=== PATIENT | female | born 1995 | race Caucasian/White ===

== ENCOUNTER 2017-01-19 20:46 | Emergency (ER) | payer OTHER ==
[~2017-01-19] VITALS: Ht 170.2 cm; Wt 65.0 kg
[~2017-01-19 20:46] MED LIST: NITR1CAP36 PO; PREN1CAP7 PO
[2017-01-19 20:47] VITALS: BP 125/70; PULSE 93; RESP 16; TEMP 98.9; O2SAT 100
[2017-01-19 23:17] VITALS: BP 115/72; PULSE 87; RESP 20; O2SAT 99
[2017-01-19 23:19] LABS: BACTERIA, URINE RARE /hpf; BLOOD, URINE NEG (NEG); COMMENT (UR) CULT NOT INDICATED; CULTURE IF INDICATED CULT NOT INDICATED; GLUCOSE,URINE NEG (NEG); KETONE, URINE 10 mg/dL (NEG); MUCUS URINE MANY /lpf (OCC); NITRITE,URINE NEG (NEG); SQUAMOUS EPITHELIAL CELL URINE 8 /hpf (0-5); URINE COLOR YELLOW (YELLW/STRAW)
--- NOTE | 2017-01-19 23:59 | PD ---
HPI Chief Complaint: Academic Director Problem/Complaint Time Seen by Provider: 23:17 Travel History International Travel<30 days: No Contact w/Intl Traveler<30days: No Traveled to known affect area: No History of Present Illness HPI To 21 year-old woman who presents to the emergency department complaining of abdominal cramping. Her last menstrual period was November 18 and she's at about 8 weeks 6 days. She is a history of one previous , found out blighted ovum about 5 months or so ago. Cramping started today. No UTI symptoms. No vaginal discharge or vaginal bleeding. No vomiting. She otherwise has been feeling generally well and healthy. History Past Medical History Narrative Medical One previous will blighted ovum Medical History: Denies Significant Hx Tetanus Vaccination: Unknown Influenza Vaccination: No Past Surgical History Surgical History: No Previous Surgery Social History Alcohol Use: No Tobacco Use: No Allergies-Medications (Allergen,Severity, Reaction): Coded Allergies: No Known Allergies (Unverified , 01/19/17) Reported Meds & Prescriptions Reported Meds & Active Scripts Active No Active Prescriptions or Reported Medications Review of Systems Except as stated in HPI: all other systems reviewed are Neg Physical Exam Narrative GENERAL: Well-appearing 21 year-old woman, no acute distress. SKIN: Focused skin assessment warm/dry. CARDIOVASCULAR: Regular rate and rhythm. No murmur appreciated. RESPIRATORY: No accessory muscle use. Clear to auscultation. Breath sounds equal bilaterally. GASTROINTESTINAL: Abdomen soft, non-tender, nondistended. Hepatic and splenic margins not palpable. MUSCULOSKELETAL: No obvious deformities. No clubbing. No cyanosis. No edema. NEUROLOGICAL: Awake and alert. No obvious cranial nerve deficits. Motor grossly within normal limits. Normal speech. PSYCHIATRIC: Appropriate mood and affect; insight and judgment normal. Data Data Last Documented VS Vital Signs Date Time Temp Pulse Resp B/P Pulse Ox O2 Delivery O2 Flow Rate FiO2 01/19/17 23:17 87 20 115/72 99 01/19/17 20:47 98.9 Room Air Orders Urinalysis - C+S If Indicated (01/19/17 22:35) Ed Urine Pregnancytest Poc (01/19/17 22:35) Beta Hcg (Quant/Titer) (01/19/17 23:13) Ed Poc Ultrasound (01/19/17 ) Labs Laboratory Tests Test 01/19/17 22:38 Urine Color YELLOW Urine Turbidity HAZY Urine pH 6.0 Urine Specific [place] 1.030 Urine Protein 30 mg/dL Urine Glucose (UA) NEG mg/dL Urine Ketones 10 mg/dL Urine Occult Blood NEG Urine Nitrite NEG Urine Bilirubin NEG Urine Urobilinogen LESS THAN 2.0 MG/DL Urine Leukocyte Esterase LARGE Urine RBC 2 /hpf Urine WBC 2 /hpf Urine Squamous Epithelial 8 /hpf Cells Urine Bacteria RARE /hpf Urine Mucus MANY /lpf Microscopic Urinalysis Comment CULT NOT INDICATED MDM Medical Decision Making Medical Screen Exam Complete: Yes Emergency Medical Condition: Yes Differential Diagnosis Threatened AB, ectopic , miscarriage, blighted ovum, other Narrative Course Medical decision-making 21 year-old woman with and cramping. Ultrasound is reassuring with IUP with heart movement. No bleeding. Recommend outpatient follow-up. Procedures Procedure Narrative Point of care ultrasound: Focus transabdominal ultrasounds perform immediate the bedside for evaluation for . Intrauterine is identified. Measures about 7 weeks 6 days by crown-rump length. heart rate 154. Diagnosis Primary Impression: Abdominal cramping affecting Additional Instructions: Take vitamins daily. Follow-up with an kaitara taraka at the first available plan. Return to the emergency department for any new or worsening symptoms. Med/Other Pt SpecificInfo: No Change to Meds Scripts No Active Prescriptions or Reported Meds Disposition: 01 DISCHARGE HOME Condition: Jose Martin Swan MD Jan 19, 2017 23:59
[2017-01-20 00:28] LABS: BETA HCG QUANT 131452 MIU/ML (0-5)
== END 2017-01-20 00:52 | disposition home or self-care (01) ==
LOC: NEPC 20:46
DX: O26.891 Other specified pregnancy related conditions, first trimester (principal); R10.9 Unspecified abdominal pain; Z3A.01 Less than 8 weeks gestation of pregnancy
CPT/HCPCS: 81001; 84702; 84703; 99284